=== PATIENT | male | born 1935 | race Hispanic/Latino ===

== ENCOUNTER → 2017-08-08 | Outpatient (CLI) | payer MEDICARE ==
--- NOTE | 2017-08-08 12:35 | Diagnostic Imaging Report ---
PROCEDURE:KNEE THREE VIEWS BILATERAL COMPARISON:None. INDICATIONS:BILATERAL KNEE SWELLING FINDINGS: Right knee: No acute, displaced fracture or dislocation. Moderate tricompartmental joint space narrowing, subchondral sclerosis, and marginal osteophytosis. Small radiopaque foreign body inferomedial to the patella. No joint effusion. Left knee: No acute, displaced fracture or dislocation. Severe tricompartmental joint space narrowing, subchondral sclerosis, and marginal osteophytosis. No definite joint effusion. 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 Dictated by: Umer Denis M.D. on 08/08/2017 at 12:38 Electronically approved by: Umer Denis M.D. on 08/08/2017 at 12:38
--- NOTE | 2017-08-08 12:39 | Diagnostic Imaging Report ---
PROCEDURE:FOOT COMPLETE BILATERAL INDICATION:Numbness and tingling in toes COMPARISON:None. FINDINGS: Right foot: No acute, displaced fracture or dislocation. Appropriate interval between the medial cuneiform and second metatarsal base in keeping with an intact Lisfranc ligament. Scattered foci of joint space narrowing and marginal osteophytosis involving the tarsometatarsal joints. Soft tissues are unremarkable. Left foot: No acute, displaced fracture or dislocation. Appropriate interval between the medial cuneiform and second metatarsal base in keeping with an intact Lisfranc ligament. Scattered foci of joint space narrowing and marginal osteophytosis involving the tarsometatarsal joints. Soft tissues are unremarkable. CONCLUSION: No acute osseous abnormalities. Bilateral mild tarsometatarsal degenerative joint disease. Dictated by: Umer Denis M.D. on 08/08/2017 at 12:41 Electronically approved by: Umer Denis M.D. on 08/08/2017 at 12:41
== END ==
LOC: RAD 11:21
PROVIDERS: ATTEND Family Medicine
DX: M25.562 Pain in left knee (principal); M25.561 Pain in right knee; M79.672 Pain in left foot; M79.671 Pain in right foot